=== PATIENT | female | born 1955 | race Caucasian/White ===

== ENCOUNTER 2020-02-20 10:58 | Outpatient (REF) | payer MEDICARE, OTHER, SELFPAY | END 2020-02-20 10:59 | disposition home or self-care (01) | LOC: HO.LAB 10:58 | PROVIDERS: PCP Internal Medicine; Visit Provider Internal Medicine | DX: Z20.828 Contact with and (suspected) exposure to other viral communicable diseases (principal) | CPT/HCPCS: 87635 ==

== ENCOUNTER 2020-03-03 16:46 | Outpatient (REF) | payer OTHER, MEDICARE, SELFPAY | END 2020-03-03 16:47 | disposition home or self-care (01) | LOC: HO.LAB 16:46 | PROVIDERS: PCP Internal Medicine; Visit Provider Internal Medicine | DX: Z20.828 Contact with and (suspected) exposure to other viral communicable diseases (principal) | CPT/HCPCS: U0003 ==